=== PATIENT | male | born 1985 | race Caucasian/White ===

== ENCOUNTER 2021-08-25 08:28 | Emergency (ER) | payer MEDICAID ==
[~2021-08-25] VITALS: Ht 180.3 cm; Wt 83.5 kg
[2021-08-25 08:39] VITALS: BP 129/71
== END 2021-08-25 10:52 | disposition home or self-care (01) ==
LOC: ER 08:32
DX: S52.592A Other fractures of lower end of left radius, initial encounter for closed fracture (principal); W21.02XA Struck by soccer ball, initial encounter; Y93.66 Activity, soccer; Y92.322 Soccer field as the place of occurrence of the external cause; Y99.8 Other external cause status
CPT/HCPCS: 73090-TC; 73110